=== PATIENT | female | born 1955 | race Caucasian/White ===

== ENCOUNTER 2017-03-02 09:16 | Emergency (ER) | payer SELFPAY ==
[2017-03-02 09:24] VITALS: TEMP 98.2; BMI 26.5
[2017-03-02] MEDS ORDERED: HYDROCHLOROTHIAZIDE 25 MG TABLET (FP) PO ONE (09:51)
[2017-03-02] MEDS ORDERED: ASPIRIN 325 MG TABLET PO ONE (09:51)
[2017-03-02] MEDS ORDERED: ACETAMINOPHEN 325 MG TABLET (FP) PO ONE (09:51)
[2017-03-02] MEDS ORDERED: ACETAMINOPHEN 325 MG TABLET (FP) ONE (09:58)
[2017-03-02] MEDS ORDERED: HYDROCHLOROTHIAZIDE 25 MG TABLET (FP) ONE (09:59)
[2017-03-02] MEDS ORDERED: ASPIRIN 325 MG TABLET ONE (09:59)
--- NOTE | 2017-03-02 10:00 | PDOC ---
History of Present Illness - General Chief Complaint: Pain Stated Complaint: RT ARM PAIN Time Seen by Provider: 03/02/17 09:25 - History of Present Illness Initial Comments: 03/02/17 10:11 Patient is a 61 year old female with a history of HTN who presents with right shoulder and arm pain found to have a bp of 206/95 in triage. History was take with the use of a milk drier phone. The patient is from the [facility] [place] and is in the [place] a 2 month vacation. She states that 10 days ago, she was lifting luggage and began experiencing right shoulder pain. She describes the pain as a ache that has gotten progressively worse prompting her visit to the ED today. She states that the pain is worse with movement and has some radiation into her right arm. In regards to her BP, she states that she was on bisoprolol 10mg, valsartan 320mg, hydrochlorothiazide 12.5mg, norvasc, and nifedipine. Her norvasc, and nifedipine were stopped 1 month ago without adjustments in her other medications. She states that her mother from a [place] at 63 years of age. She denies fevers, chills, headache, vision changes, chest pain, SOB, or abdominal pain. Past History - Past Medical History Allergies/Adverse Reactions: Allergies Allergy/AdvReac Type Severity Reaction Status Date / Time enalapril AdvReac Mild Cough Verified 03/02/17 09:24 Home Medications: Ambulatory Orders Acetaminophen [Tylenol] 650 mg PO Q6H #30 tablet 03/02/17 Bisoprolol 10mg 10 mg PO DAILY 03/02/17 Hydrochlorothiazide [Hctz -] 12.5 mg PO DAILY 03/02/17 Valsartan 320 mg PO DAILY 03/02/17 Cardiac Disorders: Yes (ENLARGED HEART) GI Disorders: Yes (GASTRITIS) HTN: Yes Hypercholesterolemia: Yes Thyroid Disease: Yes (HYPO) Other medical history: SCOLIOSIS - Surgical History Abdominal Surgery: Yes (HEMORROIDS) - Psycho/Social/Smoking Cessation Hx Suicidal Ideation: No Smoking History: Never smoked Information on smoking cessation initiated: No Hx Alcohol Use: No Drug/Substance Use Hx: No Substance Use Type: None Review of Systems - Review of Systems Constitutional: No: Chills, Fever HEENTM: No: Recent change in vision Respiratory: No: Cough, Shortness of Breath Cardiac (ROS): No: Chest Pain, Palpitations, Chest Tightness ABD/GI: No: Constipated, Diarrhea, Nausea, Vomiting : No: Dysuria Musculoskeletal: Yes: Joint Pain, Muscle Pain Integumentary: No: Rash Neurological: No: Headache, Numbness, Tingling, Weakness *Physical Exam - Vital Signs Last Vital Signs Temp Pulse Resp BP Pulse Ox 98.2 F 67 19 206/95 100 03/02/17 09:20 03/02/17 09:20 03/02/17 09:20 03/02/17 09:20 03/02/17 09:20 - Physical Exam Comments: 03/02/17 10:41 General Appearance: Nourished. No Apparent Distress HEENT: No Pharyngeal Erythema, Tonsillar Exudate, Tonsillar Erythema Respiratory/Chest: Lungs Clear, Normal Breath Sounds. No Crackles, Rales, Rhonchi, Wheezing Cardiovascular: Regular Rhythm, Regular Rate. No Murmur, Gallop/S3, Gallop/S4 Gastrointestinal/Abdominal: Normal Bowel Sounds, Flat. No Guarding, Rebound, Tenderness Extremity: Normal Capillary Refill Integumentary: Normal Color, Dry, Warm Neurologic: Fully Oriented, Alert, Normal Mood/Affect, Normal Response Heart Score/ECG Review - History History: Slightly suspicious - Electrocardiogram EKG: Normal - Age Age: 45-65 - Risk Factors Risk Factors Heart Score: Yes Hx Hypercholesterolemia, Yes Hx Hypertension, Yes Positive family hx of cardiac disease Based on the list above the patient has:: >/=3 risk factors or Hx atherosclerotic disease - Troponin Troponin: </= normal limit - Score Heart Score - Total: 3 #1 General ECG Interpretation: Sinus Rhythm, Normal Rate, Normal Intervals, No acute ischemic changes Compared to previous ECG there are: Previous ECG unavail ED Treatment Course - LABORATORY CBC & Chemistry Diagram: 03/02/17 10:34 03/02/17 10:34 - RADIOLOGY Radiology Studies Ordered: Category Date Time Status CHEST PA & LAT [RAD] Stat Radiology 03/02/17 09:51 Ordered SHOULDER-RIGHT [RAD] Stat Radiology 03/02/17 09:51 Ordered Medical Decision Making - Medical Decision Making 03/02/17 10:42 Patient is a 61 year old female with a history of HTN who presents with right shoulder pain found to have a bp of 206/95 in triage. Differential includes: Musculoskeletal strain, fracture, ACS, Hypertensive urgency. Given the history and physical exam, it is likely her arm pain is due to a muscle strain as it is worsened with movement, has been going on for 10 days and started after moving heavy luggage. However given her family history of [place], we will obtain a cbc, cmp, trop, chest radiograph, EKG to evaluate for ACS. The patient did not take one of her bp meds this morning and her bp may be elevated due to pain. We will give her morning dose of hydrochlorothiazide that she missed and treat her pain appropriately. 03/02/17 12:36 Patient's laboratory studies are unremarkable with negative troponin. Chest radiograph does not demonstrate any acute process as read by our radiologist. Patient's bp has improved to 180/80 with hydrochlorothiazide and pain management. She also reports much improvement in her pain with tylenol. Her pain is most likely due to a muscle strain and we recommended that she use tylenol as needed for pain. We discussed the results with the patient and feel comfortable discharging home. The patient is agreeable with the plan. *DC/Admit/Observation/Transfer Diagnosis at time of Disposition: Muscle strain of right shoulder Qualifiers: Encounter type: initial encounter Qualified Code(s): S46.911A - Strain of unspecified muscle, fascia and tendon at shoulder and upper arm level, right arm , initial encounter - Discharge Dispostion Disposition: HOME Admit: No - Prescriptions Prescriptions: Acetaminophen [Tylenol] 650 mg PO Q6H #30 tablet - Patient Instructions Printed Discharge Instructions: DI for Muscle Strain Additional Instructions: Por favor, regrese a la kamini de emergencias si tiene sntomas relacionados o que empeoran. Schmidt trabajo de laboratorio y la radiografa de hoy son normales y el dolor que est experimentando es probablemente debido a ellen tensin muscular. Se recomienda liliana 2 comprimidos de Tylenol o Motrin cada 4-6 horas, segn sea necesario para ayudar con el dolor. Usted puede obtener el medicamento sin receta en cualquier farmacia. Por favor, siga con schmidt proveedor de atencin primaria para discutir schmidt manejo de la medicacin de presin arterial. Print Language: TAJIK - Attestations Physician Attestion: 03/02/17 11:49 I, Dr. Geo Macias, attest that this document has been prepared under my direction and personally reviewed by me in its entirety. I further attest, that it accurately reflects all work, treatment, procedures and medical decision -making performed by me.
--- NOTE | 2017-03-02 10:27 | PDOC ---
Attending Attestation - Resident Resident Name: Goe Macias - ED Attending Attestation I have performed the following: I have examined & evaluated the patient, The case was reviewed & discussed with the resident, I agree w/resident's findings & plan, Exceptions are as noted - HPI HPI: 03/02/17 10:22 61 yo f with h/o HTN , on HCTZ 12.5 and Valsartan 320, Bisoprolol 10mg , recently discontined norvasc and then nefedipine due to leg swelling. here today c/o 10 days of right shoulder pain. thinks it happend from lifting her luggage. visiting from , planning to stay for 2 mo. no cp no sob no leg swelling. no f/c no n/v. pain worse with movement. . no new numbness or weakness. no prior cardiac workup. did not take hctz today. does have family h/ o mother with MD at 63 yo. - Physicial Exam PE: 03/02/17 10:27 general NAD. lung CTAB no crackles no wheezing. heart RRR no mrg. abd soft NT ND. skin warm and dry. calf nontender, . right shoulder FROM. posterior trapezial / scapular ttp. nuero alert oriented. strength 5/5 all four ext. - Medical Decision Making 03/02/17 10:32 61 yo F with h/o HTN< recent medication changes here with right shoulder pain, elevated bP ( [place] not take all of her meds this am). plan r/o atypical acs, trop ekg cxr xry shoulder, pain medication, aspirin for card, prophylaxis. give home bp meds. reassess. joelle outpt managment. 03/02/17 11:35 pt improved with tylenol. given results of all test, which were negative. shoulder xray with degenerative changes. cxr normal. ekg unremarkable. nonspecific changes and bp improved. told to follow up with pcp regarding bp meds. and take tylenol for shoulder pain.l Heart Score/ECG Review #1 General ECG Interpretation: Sinus Rhythm, Normal Rate (61), Normal Intervals, No acute ischemic changes Compared to previous ECG there are: Previous ECG unavail (TWI V1 V2)
[2017-03-02 10:44] LABS: BASOPHIL 0.6 % (0-2.0); MCH 25.6 pg (25.7-33.7); MCHC 32.1 g/dl (32.0-36.0); MEAN CELL VOLUME 79.7 fl (80-96); NEUTROPHILS 52.3 % (42.8-82.8); PLATELET COUNT 242 K/MM3 (134-434); RDW 14.7 % (11.6-15.6); WHITE BLOOD COUNT 7.3 K/mm3 (4.0-10.0)
[2017-03-02 11:04] VITALS: BP 181/86; PULSE 58
[2017-03-02 11:13] LABS: ALBUMIN 3.8 g/dl (3.4-5.0); ANION GAP 3 (8-16); BILIRUBIN,TOTAL 0.3 mg/dL (0.2-1.0); CALCIUM 9.6 mg/dL (8.5-10.1); CO2 33 mmol/L (21-32); CREATININE 0.7 mg/dL (0.55-1.02); GLUCOSE,RANDOM 131 mg/dL (74-106); SGOT/AST 10 U/L (15-37); SGPT/ALT 22 U/L (12-78); TOT PROT 7.8 g/dl (6.4-8.2)
[2017-03-02 11:15] LABS: ALK PHOS 65 U/L (45-117); CPK 88 IU/L (26-192); TROPONIN I < 0.02 ng/ml (0.00-0.05)
--- NOTE | 2017-03-02 11:22 | EKG ---
Test Reason : Blood Pressure : / mmHG Vent. Rate : 061 BPM Atrial Rate : 061 BPM P-R Int : 182 ms QRS Dur : 096 ms QT Int : 446 ms P-R-T Axes : 026 -24 032 degrees QTc Int : 448 ms NORMAL SINUS RHYTHM POSSIBLE LEFT ATRIAL ENLARGEMENT LEFT VENTRICULAR HYPERTROPHY ABNORMAL ECG NO PREVIOUS ECGS AVAILABLE Confirmed by KAREN CHAVEZ MD ([id number]) on 03/02/2017 11:22:00 AM Referred By: Confirmed By:KAREN CHAVEZ MD
== END 2017-03-02 12:12 | disposition home or self-care (01) ==
LOC: JER 09:16
DX: S46.911A Strain of unspecified muscle, fascia and tendon at shoulder and upper arm level, right arm, initial encounter (principal); I10 Essential (primary) hypertension; E78.00 Pure hypercholesterolemia, unspecified; E03.9 Hypothyroidism, unspecified; Z88.8 Allergy status to other drugs, medicaments and biological substances; X58.XXXA Exposure to other specified factors, initial encounter; Y93.9 Activity, unspecified; Y92.9 Unspecified place or not applicable
CPT/HCPCS: 36415; 71020-TC; 73030-TC-RT; 80053; 84484; 85025; 93005; 93010; 99282-25